=== PATIENT | female | born 1990 | race Two or more races ===

== ENCOUNTER 2018-03-05 12:56 | Emergency (ER) | payer MEDICAID, OTHER ==
--- NOTE | 2018-03-05 13:55 | ER Document Report ---
ED Medical Screen (RME) - General Chief Complaint: Abdominal Pain Stated Complaint: PELVIC PAIN Time Seen by Provider: 03/05/18 13:52 Mode of Arrival: Ambulatory Information source: Patient TRAVEL OUTSIDE OF THE [place] IN LAST 30 DAYS: No - HPI Patient complains to provider of: ; trauma Onset: Yesterday - pt is 15 weeks and states dog jumped on her stomach last pm -- today she is having abd/pelvic pain with cramping. Denies vaginal bleeding. - Related Data Allergies/Adverse Reactions: No Known Allergies Allergy (Verified 03/05/18 13:37) Past Medical History - Social History Frequency of alcohol use: None Drug Abuse: None Renal/ Medical History: Denies: Hx Peritoneal Dialysis - Immunizations Hx Diphtheria, Pertussis, Tetanus Vaccination: No Physical Exam - Vital signs Vitals: Temp Pulse Resp BP Pulse Ox 98.9 F 93 20 129/73 H 100 03/05/18 13:24 03/05/18 13:24 03/05/18 13:24 03/05/18 13:24 03/05/18 13:24 Course - Vital Signs Vital signs: Temp Pulse Resp BP Pulse Ox 98.9 F 93 20 129/73 H 100 03/05/18 13:24 03/05/18 13:24 03/05/18 13:24 03/05/18 13:24 03/05/18 13:24 Doctor's Discharge - Discharge Referrals: LOCALMD,NO [Primary Care Provider] - Follow up as needed
--- NOTE | 2018-03-05 14:52 | RADIOLOGY REPORT (SQ) ---
EXAM DESCRIPTION: U/S OB LIMITED COMPLETED DATE/TIME: 03/05/2018 2:42 pm REASON FOR STUDY: pelvic pain COMPARISON: None. TECHNIQUE: Limited transabdominal grayscale ultrasound for evaluation of specific requested obstetri caden parameters. LIMITATIONS: None. FINDINGS: CERVICAL LENGTH: 2.6 cm. Closed. SWEETIE: 11.6 cm. FHR: 150 beats per minute. PRESENTATION: Transverse. OTHER: No other significant findings. IMPRESSION: LIMITED OBSTETRICAL ULTRASOUND WITH MEASURED PARAMETERS DELINEATED ABOVE. Trimester of : Second trimester - 13 weeks 1 day to 27 weeks 6 days. TECHNICAL DOCUMENTATION: JOB ID: [id number] [employer]- All Rights Reserved Reading location - IP/workstation name: [email or web address]
[2018-03-05 15:05] LABS: APPEARANCE,URINE CLEAR; BILIRUBIN,URINE NEGATIVE (NEGATIVE); COLOR,URINE YELLOW; GLUCOSE, URINE NEGATIVE (NEGATIVE); KETONES,URINE NEGATIVE (NEGATIVE); LEUKOCYTE ESTERASE,URINE LARGE (NEGATIVE); NITRITE,URINE NEGATIVE (NEGATIVE); PROTEIN,URINE NEGATIVE (NEGATIVE); URINE SPECIFIC GRAVITY 1.023; UROBILINOGEN,URINE NEGATIVE mg/dL (<2.0)
--- NOTE | 2018-03-05 15:45 | ER Document Report ---
ED General - General Mode of Arrival: Ambulatory Information source: Patient TRAVEL OUTSIDE OF THE [place] IN LAST 30 DAYS: No <SHERRIE DUNN - Last Filed: 03/05/18 16:14> <TOYA MALONE - Last Filed: 03/05/18 23:40> - General Chief Complaint: Abdominal Pain Stated Complaint: PELVIC PAIN Time Seen by Provider: 03/05/18 13:52 Notes: Patient is a 27 year old female, currently 15 weeks (G1) presents to the emergency department complaining of pelvic pain onset this morning. She states her pitbull, of medium size, repeatedly jumped on her lower abdomen yesterday and she began to have lower abdominal cramps this morning. Patient denies any vaginal bleeding or discharge. (SHERRIE DUNN) - Related Data Allergies/Adverse Reactions: No Known Allergies Allergy (Verified 03/05/18 13:37) Past Medical History - General Information source: Patient - Social History Smoking Status: Current Every Day Smoker Frequency of alcohol use: None Drug Abuse: None Family History: None Patient has suicidal ideation: No Patient has homicidal ideation: No - Immunizations Hx Diphtheria, Pertussis, Tetanus Vaccination: No <SHERRIE DUNN - Last Filed: 03/05/18 16:14> Review of Systems - Review of Systems Constitutional: No symptoms reported EENT: No symptoms reported Cardiovascular: No symptoms reported Respiratory: No symptoms reported Gastrointestinal: See HPI, Abdominal pain Genitourinary: No symptoms reported Female Genitourinary: See HPI, Musculoskeletal: No symptoms reported Skin: No symptoms reported Hematologic/Lymphatic: No symptoms reported Neurological/Psychological: No symptoms reported -: Yes All other systems reviewed and negative <SHERRIE DUNN - Last Filed: 03/05/18 16:14> Physical Exam <SHERRIE DUNN - Last Filed: 03/05/18 16:14> <TOYA MALONE - Last Filed: 03/05/18 23:40> - Vital signs Vitals: Temp Pulse Resp BP Pulse Ox 98.9 F 93 20 129/73 H 100 03/05/18 13:24 03/05/18 13:24 03/05/18 13:24 03/05/18 13:24 03/05/18 13:24 - Notes Notes: GENERAL: Alert, interacts well. No acute distress. HEAD: Normocephalic, atraumatic. EYES: Pupils equal, round, and reactive to light. Extraocular movements intact. ENT: Oral mucosa moist, tongue midline. NECK: Full range of motion. Supple. Trachea midline. LUNGS: Clear to auscultation bilaterally, no wheezes, rales, or rhonchi. No respiratory distress. HEART: Regular rate and rhythm. No murmurs, gallops, or rubs. ABDOMEN: Soft, mild suprapubic tenderness to palpation. No bruising or abrasions. Non-distended. Bowel sounds present in all 4 quadrants. EXTREMITIES: Moves all 4 extremities spontaneously. NEUROLOGICAL: Alert and oriented x3. Normal speech. PSYCH: Normal affect, normal mood. SKIN: Warm, dry, normal turgor. No rashes or lesions noted. (SHERRIE DUNN) Course - Laboratory Result Diagrams: 03/05/18 15:43 03/05/18 15:43 <SHERRIE DUNN - Last Filed: 03/05/18 16:14> - Laboratory Result Diagrams: 03/05/18 15:43 03/05/18 15:43 <TOYA MALONE - Last Filed: 03/05/18 23:40> - Re-evaluation Re-evalutation: 03/05/18 15:53 Ultrasound shows valid intrauterine with normal heart tones. Patient on exam states that her pain has subsided without any intervention. Provided return precautions. (TOYA MALONE) - Vital Signs Vital signs: Temp Pulse Resp BP Pulse Ox 98.4 F 87 16 124/68 100 03/05/18 16:45 03/05/18 16:45 03/05/18 16:45 03/05/18 16:45 03/05/18 16:45 - Laboratory Laboratory results interpreted by ar: 03/05/18 03/05/18 03/05/18 14:00 15:43 15:43 Hgb 11.7 L Hct 34.3 L RDW 14.9 H Creatinine 0.42 L Glucose 68 L Total Bilirubin 0.1 L Beta HCG, Quant 96782.00 H Ur Leukocyte Esterase LARGE H Discharge <SHERRIE DUNN - Last Filed: 03/05/18 16:14> <TOYA MALONE - Last Filed: 03/05/18 23:40> - Discharge Clinical Impression: Qualifiers: Weeks of gestation: 15 weeks Qualified Code(s): Z3A.15 - 15 weeks gestation of Condition: Good Disposition: HOME, SELF-CARE Instructions: Injuries in Referrals: LOCALMD,NO [NO LOCAL MD] - Follow up as needed Scribe Attestation: 03/05/18 23:40 I personally performed the services described in the documentation, reviewed and edited the documentation which was dictated to the scribe in my presence, and it accurately records my words and actions. (TOYA MALONE) Scribe Documentation - Scribe Written by Scribe:: Mohamud Bunch, 03/05/2018 16:20 acting as scribe for :: Escobar <SHERRIE DUNN - Last Filed: 03/05/18 16:14>
[2018-03-05 15:56] LABS: ABSOLUTE EOSINOPHILS # (AUTO) 0.1 10^3/uL (0.0-0.6); ABSOLUTE LYMPHOCYTES (AUTO) 2.1 10^3/uL (0.5-4.7); ABSOLUTE MONOCYTES (AUTO) 0.5 10^3/uL (0.1-1.4); ABSOLUTE NEUT (AUTO) 4.6 10^3/uL (1.7-8.2); BASOPHILS % (AUTO) 0.4 % (0-2); EOSINOPHILS % (AUTO) 1.9 % (0-6); HEMATOCRIT 34.3 % (36.0-47.0); HEMOGLOBIN 11.7 g/dL (12.0-15.5); LYMPHOCYTES % (AUTO) 28.6 % (13-45); MEAN CORPUSCULAR HGB CONC 34.2 g/dL (32.0-36.0); MEAN CORPUSCULAR VOLUME 88 fl (80-97); MONOCYTES % (AUTO) 7.2 % (3-13); PLATELET COUNT 188 10^3/uL (150-450); RED BLOOD COUNT 3.92 10^6/uL (3.72-5.28); RED CELL DISTRIBUTION WIDTH 14.9 % (11.5-14.0); SEGMENTED NEUTROPHILS % (AUTO) 61.9 % (42-78); TOTAL CELLS COUNTED % (AUTO) 100 %; WHITE BLOOD COUNT 7.4 10^3/uL (4.0-10.5)
[2018-03-05 16:22] LABS: ALANINE AMINOTRANSFERASE 30 U/L (9-52); ALBUMIN 3.7 g/dL (3.5-5.0); ALKALINE PHOSPHATASE 39 U/L (38-126); ANION GAP 11 (5-19); ASPARTATE AMINO TRANSFERASE 22 U/L (14-36); BILIRUBIN,DIRECT 0.1 mg/dL (0.0-0.4); BILIRUBIN,TOTAL 0.1 mg/dL (0.2-1.3); BLOOD UREA NITROGEN 11 mg/dL (7-20); CALCIUM 9.2 mg/dL (8.4-10.2); CARBON DIOXIDE 23 mmol/L (22-30); CHLORIDE 105 mmol/L (98-107); GLUCOSE 68 mg/dL (75-110); POTASSIUM 3.9 mmol/L (3.6-5.0); SODIUM 138.6 mmol/L (137-145); TOTAL PROTEIN 6.7 g/dL (6.3-8.2)
[2018-03-05 16:46] VITALS: BP 124/68
== END 2018-03-05 16:45 | disposition home or self-care (01) ==
LOC: ER 12:56
DX: O26.892 Other specified pregnancy related conditions, second trimester (principal); R10.2 Pelvic and perineal pain; W54.1XXA Struck by dog, initial encounter; O99.332 Smoking (tobacco) complicating pregnancy, second trimester; Z3A.15 15 weeks gestation of pregnancy
CPT/HCPCS: 36415; 76815; 80053; 81001; 84702; 85025; 99284

== ENCOUNTER 2018-08-30 16:00 | Outpatient (CLI) | payer MEDICAID ==
[2018-08-30 16:24] LABS: APPEARANCE,URINE TURBID; BILIRUBIN,URINE NEGATIVE (NEGATIVE); COLOR,URINE AMBER; GLUCOSE, URINE NEGATIVE (NEGATIVE); KETONES,URINE NEGATIVE (NEGATIVE); LEUKOCYTE ESTERASE,URINE LARGE (NEGATIVE); NITRITE,URINE NEGATIVE (NEGATIVE); PROTEIN,URINE 30 mg/dL (NEGATIVE); URINE SPECIFIC GRAVITY 1.017; UROBILINOGEN,URINE NEGATIVE mg/dL (<2.0)
== END 2018-08-30 17:10 | disposition home or self-care (01) ==
LOC: LC 16:00
PROVIDERS: ATTEND Obstetrics & Gynecology
PROC: 4A1HXCZ Monitoring of Products of Conception, Cardiac Rate, External Approach (ICD-10-PCS; principal; 2018-08-30)
DX: O48.0 Post-term pregnancy (principal); Z3A.40 40 weeks gestation of pregnancy
CPT/HCPCS: 59025; 81005

== ENCOUNTER 2018-09-02 12:44 | Outpatient (CLI) | payer MEDICAID ==
[2018-09-02 13:33] LABS: APPEARANCE,URINE SLIGHTLY-CLOUDY; BILIRUBIN,URINE NEGATIVE (NEGATIVE); COLOR,URINE STRAW; GLUCOSE, URINE NEGATIVE (NEGATIVE); KETONES,URINE NEGATIVE (NEGATIVE); LEUKOCYTE ESTERASE,URINE MODERATE (NEGATIVE); NITRITE,URINE NEGATIVE (NEGATIVE); PROTEIN,URINE NEGATIVE (NEGATIVE); URINE SPECIFIC GRAVITY 1.002; UROBILINOGEN,URINE NEGATIVE mg/dL (<2.0)
[2018-09-02 13:54] LABS: URINE AMPHETAMINES SCREEN NEGATIVE; URINE BARBITURATES SCREEN NEGATIVE; URINE BENZODIAZEPINES SCREEN NEGATIVE; URINE COCAINE SCREEN NEGATIVE; URINE MARIJUANA (THC) SCREEN NEGATIVE; URINE METHADONE SCREEN NEGATIVE; URINE PHENCYCLIDINE SCREEN NEGATIVE
== END 2018-09-02 13:17 | disposition home or self-care (01) ==
LOC: LC 12:44
PROVIDERS: ATTEND Obstetrics & Gynecology Gynecology
PROC: 4A1HXCZ Monitoring of Products of Conception, Cardiac Rate, External Approach (ICD-10-PCS; principal; 2018-09-02)
DX: O36.8130 Decreased fetal movements, third trimester, not applicable or unspecified (principal); O48.0 Post-term pregnancy; Z3A.40 40 weeks gestation of pregnancy
CPT/HCPCS: 59025; 80307; 81005

== ENCOUNTER → 2018-09-03 | Outpatient (CLI) | payer MEDICAID ==
[~2018-09-03] MED LIST: HYDROXYZINE PAMOATE 50 MG CAPSULE ONE; HYDROXYZINE PAMOATE 50 MG CAPSULE PO ONE
[2018-09-03 13:36] LABS: APPEARANCE,URINE SLIGHTLY-CLOUDY; BILIRUBIN,URINE NEGATIVE (NEGATIVE); COLOR,URINE YELLOW; GLUCOSE, URINE NEGATIVE (NEGATIVE); KETONES,URINE NEGATIVE (NEGATIVE); LEUKOCYTE ESTERASE,URINE MODERATE (NEGATIVE); NITRITE,URINE NEGATIVE (NEGATIVE); PROTEIN,URINE NEGATIVE (NEGATIVE); URINE SPECIFIC GRAVITY 1.006; UROBILINOGEN,URINE NEGATIVE mg/dL (<2.0)
[2018-09-03 13:57] LABS: URINE AMPHETAMINES SCREEN NEGATIVE; URINE BARBITURATES SCREEN NEGATIVE; URINE BENZODIAZEPINES SCREEN NEGATIVE; URINE COCAINE SCREEN NEGATIVE; URINE MARIJUANA (THC) SCREEN NEGATIVE; URINE METHADONE SCREEN NEGATIVE; URINE PHENCYCLIDINE SCREEN NEGATIVE
== END ==
LOC: LC 12:11
PROVIDERS: ATTEND Obstetrics & Gynecology
PROC: 4A1HXCZ Monitoring of Products of Conception, Cardiac Rate, External Approach (ICD-10-PCS; principal; 2018-09-03)
DX: O48.0 Post-term pregnancy (principal); Z3A.40 40 weeks gestation of pregnancy
CPT/HCPCS: 59025; 81005; 80307; J3490

== ENCOUNTER 2018-09-04 03:07 | Inpatient (IN) | payer MEDICAID ==
--- NOTE | 2018-09-04 03:34 | Admission Physical ---
Datetime Report Generated by CPN: 09/04/2018 03:33 CURRENT ADMISSION Chief Complaint: Uterine Contractions Indication for Induction: Not Applicable Admit Impression : Term, Intrauterine Admit Plan: Admit to Unit; Initiate Labor Induction Protocol ALLERGIES Medication Allergies: No Known Allergies (09/04/2018) OBSTETRICAL HISTORY EDC: 08/29/2018 00:00 : 1 Para: 0 Term: 0 : 0 SAB: 0 IAB: 0 Ectopic: 0 Livin Cesareans: 0 VBACs: 0 Multiple Births: 0 PHYSICAL EXAM General: Normal HEENT: Normal Neurologic: Normal Thyroid: Normal Heart: Normal Lungs: Normal Breast: Normal Back: Normal Abdomen: Normal Genitourinary Exam: Normal Extremities: Normal DTRs: Normal Pelvic Type: Adequate Vital Signs: Reviewed; Within Normal Limits VAGINAL EXAM Dilatation: 8 Effacement: 90 Station: -1 Contraction Comments: q 2-3 MEMBRANES Membranes: Intact FETUS A EGA: 40.6 Monitoring: External US FHR- Baseline: 120s Variability: Moderate 6-25bpm Accelerations: 15X15 Decelerations: None FHR Category: Category I INFORMED CONSENT Signature: with User ID: [email or web address]
[2018-09-04] MEDS ORDERED: MISOPROSTOL 0.2 MG TABLET ONE (03:49)
[2018-09-04] MEDS ORDERED: OXYTOCIN 10 UNIT/ML VIAL ONE (03:49)
[2018-09-04] MEDS ORDERED: LIDOCAINE 1% INJ-PF (10 MG/ML) 30 ML SDV ONE ×2 (03:50→05:49)
[2018-09-04] MEDS ORDERED: OXYTOCIN/NORMAL SALINE 20 UNIT/1,000 ML RTUINJ ONE (03:50)
[2018-09-04] MEDS ORDERED: RINGERS SOLUTION,LACTATED 1,000 ML IV PRN (03:59)
[2018-09-04 04:15] LABS: ABSOLUTE BASOPHILS # (AUTO) 0.3 10^3/uL (0.0-0.2); ABSOLUTE EOSINOPHILS # (AUTO) 0.2 10^3/uL (0.0-0.6); ABSOLUTE LYMPHOCYTES (AUTO) 2.3 10^3/uL (0.5-4.7); ABSOLUTE MONOCYTES (AUTO) 1.1 10^3/uL (0.1-1.4); ABSOLUTE NEUT (AUTO) 8.8 10^3/uL (1.7-8.2); BASOPHILS % (AUTO) 2.3 % (0-2); EOSINOPHILS % (AUTO) 1.3 % (0-6); HEMATOCRIT 37.7 % (36.0-47.0); HEMOGLOBIN 12.8 g/dL (12.0-15.5); LYMPHOCYTES % (AUTO) 18.2 % (13-45); MEAN CORPUSCULAR HEMOGLOBIN 29.3 pg (27.0-33.4); MEAN CORPUSCULAR VOLUME 86 fl (80-97); MONOCYTES % (AUTO) 8.6 % (3-13); PLATELET COUNT 170 10^3/uL (150-450); RED BLOOD COUNT 4.36 10^6/uL (3.72-5.28); RED CELL DISTRIBUTION WIDTH 13.4 % (11.5-14.0); SEGMENTED NEUTROPHILS % (AUTO) 69.6 % (42-78); TOTAL CELLS COUNTED % (AUTO) 100 %; WHITE BLOOD COUNT 12.7 10^3/uL (4.0-10.5)
[2018-09-04 04:24] LABS: APPEARANCE,URINE CLOUDY; BILIRUBIN,URINE NEGATIVE (NEGATIVE); COLOR,URINE YELLOW; GLUCOSE, URINE NEGATIVE (NEGATIVE); KETONES,URINE NEGATIVE (NEGATIVE); LEUKOCYTE ESTERASE,URINE LARGE (NEGATIVE); NITRITE,URINE NEGATIVE (NEGATIVE); PROTEIN,URINE NEGATIVE (NEGATIVE); URINE SPECIFIC GRAVITY 1.012; UROBILINOGEN,URINE NEGATIVE mg/dL (<2.0)
[2018-09-04] MEDS ORDERED: RINGERS SOLUTION,LACTATED 1,000 ML IV ONE (04:30)
[2018-09-04 04:43] LABS: URINE AMPHETAMINES SCREEN NEGATIVE; URINE BARBITURATES SCREEN NEGATIVE; URINE BENZODIAZEPINES SCREEN NEGATIVE; URINE COCAINE SCREEN NEGATIVE; URINE MARIJUANA (THC) SCREEN NEGATIVE; URINE METHADONE SCREEN NEGATIVE; URINE PHENCYCLIDINE SCREEN NEGATIVE
[2018-09-04] MEDS ORDERED: DIPH/PERTUSS(ACELL)/TETANUS VAC/PF 0.5 ML SYR (>=10YO) IM PRN (06:13)
[2018-09-04] MEDS ORDERED: DIBUCAINE 1% OINTMENT 28 GM TP PRN (06:13)
[2018-09-04] MEDS ORDERED: MEASLES,MUMPS&RUBELLA VACC/PF 0.5 ML VIAL SUBCUT PRN (06:13)
[2018-09-04] MEDS ORDERED: ZOLPIDEM TARTRATE 5 MG TABLET PO PRN (06:13)
[2018-09-04] MEDS ORDERED: ACETAMINOPHEN WITH CODEINE #3 TABLET PO PRN (06:13)
[2018-09-04] MEDS ORDERED: OXYTOCIN/NORMAL SALINE 20 UNIT/1,000 ML RTUINJ IV PRN (06:13)
[2018-09-04] MEDS ORDERED: BENZOCAINE/MENTHOL AEROSOL SPRAY 56 ML TOP PRN (06:13)
[2018-09-04] MEDS ORDERED: IBUPROFEN 800 MG TABLET ONE (07:34)
[2018-09-04] MEDS: FERROUS SULFATE 325 MG TABLET PO SCH ×2 (10:34→19:32)
[2018-09-04] MEDS: PRENATAL VITAMIN W DHA CAPSULE PO SCH (10:34)
[2018-09-04] MEDS: SENNOSIDES/DOCUSATE 8.6-50 MG 1 EACH TABLET PO SCH (10:35)
[2018-09-04] MEDS: DOCUSATE SODIUM 100 MG CAPSULE PO SCH ×2 (10:35→19:32)
--- NOTE | 2018-09-04 10:52 | Delivery Summary ---
Del Sum A-C Datetime Report Generated by CPN: 09/04/2018 10:52 DELIVERY PERSONNEL DELIVERY PERSONNEL: [id number] Delivery Doctor:: Samatnha Stone MD Labor and Delivery Nurse:: Francisca Mccall RNhealth information assistant Nurse:: Racheal Martinez RN Nursery Nurse:: Angela Mart RN [employer] Programmer/HEAVY DUTY CUSTODIAN: Rachelle Ross, ST MATERNAL INFORMATION Delivery Anesthesia: None Medications After Delivery: Pitocin Drip 20 Units/1000ml NSS Estimated Blood Loss (ml): 400 Maternal Complications: Precipitous Labor (<3hrs) Provider Comments: of a viable female at 0511 with an OA presentation; APGARS 8, 9; bilateral 2nd degree periurethral and bilateral 2nd degree lateral vagina wall lacs LABOR SUMMARY EDC: 08/29/2018 00:00 No. Babies in Womb: 1 Attempted: No Labor Anesthesia: None LABOR INFORMATION Reason for Induction: Not Applicable Onset of Labor: 09/04/2018 01:00 Complete Dilatation: 09/04/2018 04:50 Oxytocin: N/A Group B Beta Strep: Negative Antibiotics # of Doses: n/a Antibiotics Time of Last Dose: n/a Name of Antibiotic Given: n/a Steroids Given: None Reason Steroids Not Administered: Not Applicable MEMBRANES Membranes Rupture Method: Artificial Rupture of Membranes: 09/04/2018 05:02 Length of Rupture (hr): 0.15 Amniotic Fluid Color: Clear Amniotic Fluid Amount: Small Amniotic Fluid Odor: None STAGES OF LABOR Stage 1 hr: 3 Stage 1 min: 50 Stage 2 hr: 0 Stage 2 min: 21 Stage 3 hr: 0 Stage 3 min: 5 Total Time in Labor hr: 4 Total Time in Labor min: 16 VAGINAL DELIVERY Episiotomy: None Laceration #1: Vaginal Laceration Extension #1: Second Degree Laceration #2: Vaginal Laceration Extension #2: Second Degree Laceration #3: Perineal Laceration Extension #3: Second Degree Other Laceration: 2nd degree bilateral periurethral, 2nd bilateral vaginal wall Laceration Repair: Yes Laceration Repair Note: 2-0 vicryl, 2-0 chromic and 3-0 chromic used Initial Vag Sponge Count: 0 Final Vag Sponge Count: 0 Initial Vag Sharps Count: 0 Final Vag Sharps Count: 0 Sponge Count Correct: N/A Sharps Count Correct: Yes CSECTION DELIVERY Primary Indication: N/A Secondary Indication: N/A CSection Incidence: N/A Labor: N/A Elective: N/A CSection Incision: N/A BABY A INFORMATION Infant Delivery Date/Time: 09/04/2018 05:11 Method of Delivery: Vaginal Born in Route : No : N/A Forceps: N/A Vacuum Extraction: N/A Shoulder Dystocia : No PRESENTATION/POSITION BABY A Presentation: Cephalic Cephalic Presentation: Vertex Vertex Position: Right Occipital Anterior Breech Presentation: N/A PLACENTA INFORMATION BABY A Placenta Delivery Time : 09/04/2018 05:16 Placenta Method of Delivery: Spontaneous Placenta Status: Delivered SCORES BABY A Heart Rate 1 min: >100 bpm Resp Effort 1 min: Good Cry Reflex Irritability 1 min: Cough or Sneeze or Pulls Away Muscle Tone 1 min: Active Motion Color 1 min: Blue/Pale Resuscitation Effort 1 min: Tactile Stimulation SCORE 1 MIN: 8 Heart Rate 5 min: >100 bpm Resp Effort 5 min: Good Cry Reflex Irritability 5 min: Cough or Sneeze or Pulls Away Muscle Tone 5 min: Active Motion Color 5 min: Body [place], Extremities Blue Resuscitation Effort 5 min: Tactile Stimulation SCORE 5 MIN: 9 INFORMATION BABY A Gestational Age at Delivery: 40.6 Gestational Status: Full Term- 39- 40.6 Weeks Outcome : Liveborn Condition : Stable Sex: Female IDENTIFICATION BABY A Infant Verification Date/Time: 09/04/2018 06:02 ID Band Number: [id number] Mother's Name Verified: Yes Infant RN Verifying Infant: BSudha Martinez, RN Additional Verifying Personnel: Sherri Mccall RN WEIGHT/LENGTH BABY A Infant Birthweight (gm): 3130 Infant Weight (lb): 6 Infant Weight (oz): 14 Length (in): 19.50 Infant Length (cm): 49.53 CORD INFORMATION BABY A No. Cord Vessels: 3 Nuchal Cord : Around Neck x1, Loose Cord Blood Taken: Yes-For Storage (Mom's Blood type +) ASSESSMENT BABY A Skin to Skin: Yes BABY B INFORMATION : N/A SIGNATURES Signature: with User ID: [email or web address]
[2018-09-04] MEDS: IBUPROFEN 800 MG TABLET PO SCH ×2 (15:06→21:14)
[2018-09-05] MEDS: IBUPROFEN 800 MG TABLET PO SCH ×3 (06:55→21:16)
[2018-09-05 08:30] LABS: HEMATOCRIT 30.4 % (36.0-47.0); HEMOGLOBIN 10.3 g/dL (12.0-15.5); MEAN CORPUSCULAR HEMOGLOBIN 29.7 pg (27.0-33.4); MEAN CORPUSCULAR VOLUME 88 fl (80-97); PLATELET COUNT 158 10^3/uL (150-450); RED BLOOD COUNT 3.48 10^6/uL (3.72-5.28); RED CELL DISTRIBUTION WIDTH 13.6 % (11.5-14.0); WHITE BLOOD COUNT 8.8 10^3/uL (4.0-10.5)
--- NOTE | 2018-09-05 10:21 | PDOC PROGRESS REPORT ---
Subjective-OB Progress Note for:: 09/05/18 Physical Exam (OB) Vital Signs: Temp Pulse Resp BP Pulse Ox 98.1 F 88 16 125/80 100 09/05/18 07:29 09/05/18 07:29 09/05/18 07:29 09/05/18 07:29 09/05/18 07:29 Intake & Output 09/04/18 09/05/18 09/06/18 06:59 06:59 06:59 Intake Total 1000 Balance 1000 Weight 119.2 kg - PIH/Pre-Eclampsia Headache: Absent Epigastric Pain: No Visual Changes: No - Lochia Lochia Amount: Small 10-25 ml Lochia Color: Rubra/Red - Abdomen Description: Soft, Round Hernia Present: No Bowel Sounds: Normoactive Flatus Presence: Present Stool: No Fundal Description: Firm, Midline Fundal Height: u/u - u/2 Objective-Diagnostic Laboratory: 09/05/18 07:48 09/05/18 07:48 WBC 8.8 RBC 3.48 L Hgb 10.3 L D Hct 30.4 L MCV 88 MCH 29.7 MCHC 34.0 RDW 13.6 Plt Count 158
[2018-09-05] MEDS: SENNOSIDES/DOCUSATE 8.6-50 MG 1 EACH TABLET PO SCH (10:58)
[2018-09-05] MEDS: DOCUSATE SODIUM 100 MG CAPSULE PO SCH ×2 (10:58→17:30)
[2018-09-05] MEDS: FERROUS SULFATE 325 MG TABLET PO SCH ×2 (10:58→17:30)
[2018-09-05] MEDS: PRENATAL VITAMIN W DHA CAPSULE PO SCH (10:58)
[2018-09-05] MEDS: ACETAMINOPHEN WITH CODEINE #3 TABLET PO PRN ×2 (11:02→20:26)
[2018-09-06] MEDS: IBUPROFEN 800 MG TABLET PO SCH (05:28)
[2018-09-06 09:45] VITALS: BP 121/67
--- NOTE | 2018-09-06 09:51 | PDOC DISCHARGE SUMMARY ---
Final Diagnosis Discharge Date: 09/06/18 - Final Diagnosis (1) Delivery normal Is this a current diagnosis for this admission?: Yes (2) Labor, precipitous, delivered Is this a current diagnosis for this admission?: Yes Discharge Data - Discharge Medication Prescriptions: Ibuprofen [Motrin 800 mg Tablet] 800 mg PO Q8HP PRN #90 tablet PRN Reason: Vit/Iron Fum/Folic AC [ Tablet] 1 each PO DAILY #90 tablet Home Medications: Ibuprofen [Motrin 800 mg Tablet] 800 mg PO Q8HP PRN #90 tablet 09/06/18 Vit/Iron Fum/Folic AC [ Tablet] 1 each PO DAILY #90 tablet 09/06/18 Procedures: NST Intrapartum Procedure(s): Spontaneous Vaginal Delivery - Diagnosis Test Laboratory: Temp Pulse Resp BP Pulse Ox 98.3 F 88 16 121/67 99 09/06/18 07:55 09/06/18 07:55 09/06/18 07:55 09/06/18 07:55 09/06/18 07:55 09/04/18 09/04/18 09/05/18 03:20 03:55 07:48 RBC 4.36 3.48 L Hgb 12.8 10.3 L D Hct 37.7 30.4 L Urine Opiates Screen NEGATIVE - Discharge information/Instructions Discharge Activity: Balance Activity w/Rest, Pelvic Rest Discharge Diet: Regular Disposition: HOME, SELF-CARE Follow up with: [facility] in: 4, Weeks
[2018-09-06] MEDS: DOCUSATE SODIUM 100 MG CAPSULE PO SCH (10:15)
[2018-09-06] MEDS: FERROUS SULFATE 325 MG TABLET PO SCH (10:15)
[2018-09-06] MEDS: SENNOSIDES/DOCUSATE 8.6-50 MG 1 EACH TABLET PO SCH (10:15)
[2018-09-06] MEDS: PRENATAL VITAMIN W DHA CAPSULE PO SCH (10:15)
== END 2018-09-06 14:50 | disposition home or self-care (01) | DRG 807 ==
LOC: LC 03:07 → LR 03:55 → 2S 11:38
PROVIDERS: ADMIT Obstetrics & Gynecology; ATTEND Obstetrics & Gynecology
PROC: 10E0XZZ Delivery of Products of Conception, External Approach (ICD-10-PCS; principal; 2018-09-04)
PROC: 0KQM0ZZ Repair Perineum Muscle, Open Approach (ICD-10-PCS; 2018-09-04)
PROC: 10907ZC Drainage of Amniotic Fluid, Therapeutic from Products of Conception, Via Natural or Artificial Opening (ICD-10-PCS; 2018-09-04)
PROC: 4A1HXCZ Monitoring of Products of Conception, Cardiac Rate, External Approach (ICD-10-PCS; 2018-09-04)
DX: O62.3 Precipitate labor (principal); Z37.0 Single live birth; O71.82 Other specified trauma to perineum and vulva; O69.81X0 Labor and delivery complicated by cord around neck, without compression, not applicable or unspecified; Z28.21 Immunization not carried out because of patient refusal; Z3A.40 40 weeks gestation of pregnancy
CPT/HCPCS: 36415; 80307; 81005; 85025; 85027; 86592; 86850; 86900; 86901; J2590; J3490

== ENCOUNTER → 2020-01-30 | Outpatient (CLI) | payer SELFPAY ==
[2020-01-30 16:22] VITALS: BP 122/67
--- NOTE | 2020-01-30 16:22 | ER RDC ASSESSMENT REPORT ---
Intake - In the Last 14 days Have you traveled outside [place]?: No Have you been in close contact with someone CONFIRMED: No Worked in Healthcare?: No - Symptoms Subjective Fever([place] feverish): Yes Chills: No Muscule Aches: Yes Runny Nose: No Sore Throat: No Cough (New or worsening chronic cough): No Shortness of breath: No Nausea or Vomiting: Yes Headache: Yes Abdominal Pain: No Diarrhea(3 or more loose stools in last 24 hours): Yes - Do you have any of the following Chronic lung disease: Asthma or emphysema or COPD: No Cystic Fibrosis: No Diabetes: No High Blood Pressure: No Cardiovascular Disease: No Chronic Kidney Disease: No Chronic Liver Disease: No Chronic blood disorder like Sickle Cell Disease: No Weak immune system due to disease or medication: No Neurologic condition that limits movement: No Developmental delay - Moderate to Severe: No Recent (within past 2 weeks) or current : No Morbid Obesity (>100 pounds over ideal weight): No - Objective Vital Signs: 5/5" 245 lb Temperature: 98.1 F Pulse Rate: 72 Respiratory Rate: 18 Blood Pressure: 122/67 O2 Sat by Pulse Oximetry: 97 Objective: Given above, testing performed: flu, covid Disposition: Home; Selfcare General - General Chief Complaint: Flu Symptoms Time Seen by Provider: 01/30/20 14:56 Mode of Arrival: Ambulatory Information source: Patient - [facility] Notes: 29-year-old female presents to [facility] clinic for COVID-19 testing. Patient reports onset of symptoms 01/23/2020. She is reporting mild subjective fever, backache, nausea, headache, diarrhea, and fatigue. No exacerbating or relieving factors. Patient denies chills, rhinorrhea, cough, shortness of breath, and abdominal pain. Patient states she did have some sore throat last week but that has resolved at this point. - Related Data Allergies/Adverse Reactions: No Known Allergies Allergy (Verified 09/04/18 03:20) Past Medical History - General Information source: Patient - Social History Smoking Status: Never Smoker Family History: None - Medical History Medical History: Negative - Past Medical History Cardiac Medical History: Reports: None Pulmonary Medical History: Reports: None EENT Medical History: Reports: None Neurological Medical History: Reports: None Endocrine Medical History: Reports: None Renal/ Medical History: Reports: None. Denies: Hx Peritoneal Dialysis Malignancy Medical History: Reports: None GI Medical History: Reports: None Musculoskeletal Medical History: Reports None Skin Medical History: Reports None Psychiatric Medical History: Reports: None Traumatic Medical History: Reports: None Infectious Medical History: Reports: None Past Surgical History: Reports: None Physical Exam - General General appearance: Appears well, Alert In distress: None Notes: PHYSICAL EXAMINATION: GENERAL: Well-appearing and in no acute distress. HEAD: Atraumatic, normocephalic. EYES: sclera anicteric, conjunctiva are normal. ENT: nares patent. Moist mucous membranes. NECK: Normal range of motion, supple without lymphadenopathy LUNGS: CTAB and equal. No wheezes rales or rhonchi. HEART: Regular rate and rhythm without murmurs ABDOMEN: Soft, nontender, normal bowel sounds, no guarding. EXTREMITIES: Normal range of motion, no pitting edema. No cyanosis. NEUROLOGICAL: Cranial nerves grossly intact. Normal speech. PSYCH: Normal mood, normal affect. SKIN: Warm, Dry, normal turgor, no rashes or lesions noted Patient Education/Counseling Counseling/Education: Patient presents with upper respiratory symptoms worrisome for possible Covid 19. Patient does not have emergency worrying symptoms such as difficulty breathing, shortness of breath, chest pain, pressure, confusion or cyanosis. Patient appears suitable for discharge as vital signs are stable and patient is nontoxic in appearance. Good return precautions have been discussed with patient, patient verbalized understanding and is agreeable with discharge plan of care at this time. Guidance for worsening S/SX: As a person under investigation for Covid 19, the [place] department of Health and Human Services, division of public health advises you to adhere to the following guidance until your test results are reported to you. If your test result is positive, you will receive additional information from your provider and your local health department at that time. Remain at home until you are cleared by the health provider or public health authorities. Keep a log of visitors to your home, notify any visitors to your home of your isolation status. If you plan to move to a new address or leave the county, notify the local health department in your County. Call your doctor or seek care if you have an urgent medical need. Before seeking medical care, call ahead to get instructions from the provider before arriving at the medical office clinic or hospital. Notify them that you are being tested for the virus that causes Covid 19 so that arrangements can be made, as necessary, to prevent transmission to others in the healthcare setting. Next, notify the local health department in your county. If a medical emergency arises and you need to call 911, inform the first responders that you are being tested for the virus that causes Covid 19. Next, notify the local health department in your county. RDC Discharge - Discharge Clinical Impression: Encounter for screening laboratory testing for COVID-19 virus Upper respiratory infection Qualifiers: Pharyngitis/tonsillitis etiology: unspecified etiology Condition: Good Disposition: Home; Selfcare
[2020-01-30 17:56] LABS: A TYPE INFLUENZA AG NEGATIVE (NEGATIVE); B INFLUENZA AG NEGATIVE (NEGATIVE)
== END ==
LOC: RDC 13:36
PROVIDERS: ATTEND Registered Nurse
DX: Z20.828 Contact with and (suspected) exposure to other viral communicable diseases (principal); J06.9 Acute upper respiratory infection, unspecified; R50.9 Fever, unspecified; M79.10 Myalgia, unspecified site; R11.0 Nausea; R51 Headache; R19.7 Diarrhea, unspecified; R53.83 Other fatigue; M54.9 Dorsalgia, unspecified
CPT/HCPCS: 87635; 87804; C9803; 99201; 99211